=== PATIENT | male | born 1940 | race Hispanic/Latino ===

== ENCOUNTER 2017-04-20 06:19 | Day surgery (SDC) | payer OTHER, MEDICARE ==
[2017-04-19 09:46] VITALS: BP 159/67
[2017-04-19 09:55] LABS: BASOPHILS % (AUTO) 0.6 % (0.0-5.0); EOSINOPHILS % (AUTO) 2.4 % (0.0-8.0); LYMPHOCYTES % (AUTO) 20.4 % (21.0-51.0); MEAN CORPUSCULAR HGB CONC 34.2 g/dL (32.0-36.0); MEAN CORPUSCULAR VOLUME 93.6 fL (79-99); MONOCYTES % (AUTO) 6.9 % (3.0-13.0); NEUTROPHILS % (AUTO) 69.7 % (40.0-77.0); PLATELET COUNT (AUTO) 170 K/uL (130-400); RED BLOOD CELL COUNT(AUTO) 4.39 MIL/uL (4.50-6.20); RED CELL DISTRIBUTION WIDTH 13.5 % (11.0-15.5); WHITE BLOOD COUNT (AUTO) 6.1 K/uL (4.8-10.8)
[2017-04-19 09:56] LABS: APPEARANCE,URINE Clear (CLEAR); BILIRUBIN,URINE Negative (NEGATIVE); COLOR,URINE Yellow (YELLOW); GLUCOSE, URINE (UA) Negative (NEGATIVE); KETONES,URINE Negative (NEGATIVE); LEUKOCYTE ESTERASE ,URINE Negative (NEGATIVE); NITRATE,URINE Negative (NEGATIVE); OCCULT BLOOD,URINE Negative (NEGATIVE); PH,URINE 6.5 (5.0-8.0); PROTEIN,URINE Negative (NEGATIVE)
[2017-04-19 10:02] LABS: POTASSIUM 4.1 mmol/L (3.5-5.1)
[2017-04-19 10:06] LABS: PARTIAL THROMBOPLASTIN TIME 25.6 SEC (26.3-35.5); PROTHROMBIN TIME 10.5 SEC (9.6-11.6)
[2017-04-20] VITALS (10 sets, daily range): BP systolic 101–171; BP diastolic 53–70
[~2017-04-20] VITALS: Ht 152.4 cm; Wt 73.2 kg
[~2017-04-20 06:19] MED LIST: CLOP75TA32 PO; FINA5TAB41 PO; LISI10TA7 PO; SIMV20TA6 PO; SODIUM CHLORIDE 0.9% 500ML 500 ML IV SCH; TAMS0.4C32 PO
[2017-04-20] MEDS ORDERED: IOPAMIDOL-370 75 ML VIAL IV ONE (08:56)
[2017-04-20] MEDS ORDERED: ISOVUE-370 50ML VIAL IV ONE (08:56)
[2017-04-20] MEDS ORDERED: LIDOCAINE HCL 2% 20ML ONE (08:56)
[2017-04-20] MEDS ORDERED: BIVALIRUDIN 250 MG/VIAL IV ONE (08:56)
[2017-04-20] MEDS ORDERED: IOPAMIDOL-370 100 ML VIAL IV ONE (08:56)
[2017-04-20] MEDS ORDERED: SODIUM CHLORIDE 0.9% 1000ML 1,000 ML IV SCH (11:49)
[2017-04-20] MEDS ORDERED: METO-391 PO (11:56)
[2017-04-20] MEDS ORDERED: ASPI81TA40 PO (11:56)
== END 2017-04-20 16:20 | disposition home or self-care (01) ==
LOC: DAH 06:19
PROVIDERS: ATTEND Internal Medicine Cardiovascular Disease
DX: I35.0 Nonrheumatic aortic (valve) stenosis (principal); I25.118 Atherosclerotic heart disease of native coronary artery with other forms of angina pectoris; I10 Essential (primary) hypertension; E78.5 Hyperlipidemia, unspecified; Z86.73 Personal history of transient ischemic attack (TIA), and cerebral infarction without residual deficits; I65.23 Occlusion and stenosis of bilateral carotid arteries
CPT/HCPCS: 36415; 71045; 80048; 81003; 85025; 85610; 85730; 93005; 93460; A4606; C1760; C1769; C1893; C1894; J1644 ×2; J3490; J7040; Q9967 ×3; J0583

== ENCOUNTER 2017-05-04 12:15 | Inpatient (IN) | payer OTHER, MEDICARE ==
[~2017-05-04] VITALS: Ht 157.5 cm; Wt 70.5 kg
[2017-05-04 11:27] VITALS: BP 132/55
[2017-05-04 11:33] LABS: BASOPHILS % (AUTO) 0.6 % (0.0-5.0); EOSINOPHILS % (AUTO) 3.9 % (0.0-8.0); HEMATOCRIT 40.1 % (42-54); LYMPHOCYTES % (AUTO) 19.9 % (21.0-51.0); MEAN CORPUSCULAR HEMOGLOBIN 32.6 pg (27.0-33.0); MEAN CORPUSCULAR HGB CONC 34.9 g/dL (32.0-36.0); MEAN CORPUSCULAR VOLUME 93.5 fL (79-99); MONOCYTES % (AUTO) 6.6 % (3.0-13.0); NUCLEATED RED BLOOD CELLS 0.1 % (0.0-0.19); PLATELET COUNT (AUTO) 131 K/uL (130-400); RED BLOOD CELL COUNT(AUTO) 4.29 MIL/uL (4.50-6.20); RED CELL DISTRIBUTION WIDTH 13.4 % (11.0-15.5); WHITE BLOOD COUNT (AUTO) 6.2 K/uL (4.8-10.8)
[2017-05-04 11:41] LABS: HEMOGLOBIN A1C 6.3 % (4.0-6.0)
[2017-05-04 11:46] LABS: ALBUMIN 3.6 g/dL (3.5-5.0); BILIRUBIN,TOTAL 0.3 mg/dL (0.2-1.0); POTASSIUM 4.3 mmol/L (3.5-5.1); TOTAL PROTEIN, SERUM 6.6 g/dL (6.0-8.3)
[2017-05-04 11:52] LABS: INR 0.98 (0.85-1.15); PARTIAL THROMBOPLASTIN TIME 26.5 SEC (26.3-35.5); PROTHROMBIN TIME 10.3 SEC (9.6-11.6)
[~2017-05-04 12:15] MED LIST changes: +ASPI81TA40 PO; -CLOP75TA32 PO; +METO-391 PO; -SODIUM CHLORIDE 0.9% 500ML 500 ML IV SCH
[2017-05-04] MEDS ORDERED: CEFUROXIME 1.5GM+NS 100ML 100 ML IV SCH (13:00)
[2017-05-04] MEDS ORDERED: CEFUROXIME SODIUM 1.5 GM VIAL IVP SCH (13:15)
[2017-05-04] MEDS ORDERED: WATER FOR INJECTION,STERILE 20 ML VIAL IJ SCH (13:15)
[2017-05-08 09:11] VITALS: BP 134/57
[2017-05-08] MEDS ORDERED: THROMBIN-JMI 5000 UNIT/VIAL TP ONE (09:36)
[2017-05-08] MEDS ORDERED: DELNIDO FORMULA 2 BAG IV ONE (09:37)
[2017-05-08] MEDS ORDERED: NOREPINEPHRINE BITARTRATE 1 MG/1 ML ML IV ONE ×2 (09:51→09:53)
[2017-05-09 11:35] VITALS: BP 145/59
[2017-05-09] MEDS ORDERED: SODIUM CHLORIDE 0.9% 1000ML 1,000 ML IV ONE (11:41)
[2017-05-09] MEDS: CEFUROXIME SODIUM 1.5 GM VIAL ONE (11:56)
[2017-05-09] MEDS ORDERED: CALCIUM CHLORIDE 100 MG/ML 10 ML SYG IVP ONE ×2 (12:00)
[2017-05-09] MEDS ORDERED: SODIUM BICARB 8.4% 50ML SYRINGE IVP ONE ×2 (12:00)
[2017-05-09] MEDS ORDERED: AMINOCAPROIC ACID 250 MG/ML 20 ML VIAL IV ONE ×2 (12:00)
[2017-05-09] MEDS ORDERED: MANNITOL 25% 50ML VIAL IV ONE ×2 (12:00)
[2017-05-09] MEDS ORDERED: HEPARIN SODIUM 1000UNIT/ML 10ML VIAL IV ONE ×2 (12:00)
[2017-05-09] MEDS ORDERED: ALBUMIN (HUMAN) 25% 50 ML IV ONE ×2 (12:00)
[2017-05-09 17:30] VITALS: BP 120/55
[2017-05-09 19:43] VITALS: BP 109/48
[2017-05-09] MEDS ORDERED: POTASSIUM CHLORIDE 20MEQ/100ML 100 ML IV PRN (21:30)
[2017-05-09] MEDS ORDERED: LIDOCAINE HCL-MPF 1% 2ML VIAL IVP PRN (21:30)
[2017-05-09] MEDS ORDERED: POTASSIUM CHLORIDE 20 MEQ ERTAB PO PRN (21:30)
[2017-05-09] MEDS ORDERED: POTASSIUM CHLORIDE 10% ELIXIR 20 MEQ/15 ML UDCUP PO PRN (21:30)
[2017-05-09 22:13] LABS: HEMATOCRIT 38.2 % (42-54); MEAN CORPUSCULAR HEMOGLOBIN 32.5 pg (27.0-33.0); MEAN CORPUSCULAR HGB CONC 34.7 g/dL (32.0-36.0); MEAN CORPUSCULAR VOLUME 93.5 fL (79-99); PLATELET COUNT (AUTO) 133 K/uL (130-400); RED BLOOD CELL COUNT(AUTO) 4.09 MIL/uL (4.50-6.20); RED CELL DISTRIBUTION WIDTH 13.8 % (11.0-15.5); WHITE BLOOD COUNT (AUTO) 5.1 K/uL (4.8-10.8)
[2017-05-09 22:24] LABS: INR 0.99 (0.85-1.15); PARTIAL THROMBOPLASTIN TIME 25.9 SEC (26.3-35.5); PROTHROMBIN TIME 10.4 SEC (9.6-11.6)
[2017-05-09 22:27] LABS: ALBUMIN 3.5 g/dL (3.5-5.0); BILIRUBIN,TOTAL 0.3 mg/dL (0.2-1.0); CREATININE 1.1 mg/dL (0.5-1.5); POTASSIUM 4.2 mmol/L (3.5-5.1); TOTAL PROTEIN, SERUM 6.7 g/dL (6.0-8.3)
[2017-05-09 23:26] VITALS: BP 103/54
[2017-05-10] VITALS (18 sets, daily range): BP systolic 57–142; BP diastolic 30–72
[2017-05-10 04:57] LABS: HEMATOCRIT 36.5 % (42-54); MEAN CORPUSCULAR HEMOGLOBIN 33.1 pg (27.0-33.0); MEAN CORPUSCULAR HGB CONC 35.5 g/dL (32.0-36.0); MEAN CORPUSCULAR VOLUME 93.2 fL (79-99); NUCLEATED RED BLOOD CELLS 0.1 % (0.0-0.19); PLATELET COUNT (AUTO) 108 K/uL (130-400); RED BLOOD CELL COUNT(AUTO) 3.92 MIL/uL (4.50-6.20); RED CELL DISTRIBUTION WIDTH 13.7 % (11.0-15.5); WHITE BLOOD COUNT (AUTO) 5.4 K/uL (4.8-10.8)
[2017-05-10 05:07] LABS: POTASSIUM 4.3 mmol/L (3.5-5.1)
[2017-05-10] MEDS ORDERED: HEPARIN SODIUM 1000UNIT/ML 10ML VIAL ONE ×2 (06:29→07:53)
[2017-05-10] MEDS ORDERED: PAPAVERINE HCL 30 MG/ML 2ML VIAL ONE (06:29)
[2017-05-10] MEDS ORDERED: BACITRACIN 50,000 UNIT VIAL ONE (06:29)
[2017-05-10] MEDS ORDERED: OCTYL 2-CYANOACRYLATE 1 EACH TP ONE (06:29)
[2017-05-10] MEDS ORDERED: NITROGLYCERIN 50 MG/D5% WATER 1 BOT ONE (06:44)
[2017-05-10] MEDS ORDERED: MILRINONE-D5W 20 MG/100 ML 0 ML IV ONE (07:53)
[2017-05-10] MEDS ORDERED: GLYCOPYRROLATE 0.2 MG/ML 5 ML VIAL ONE (07:53)
[2017-05-10] MEDS ORDERED: AMIODARONE HCL 900MG/18ML IV ONE (07:53)
[2017-05-10] MEDS ORDERED: ESMOLOL HCL 10 MG/ML 10 ML VIAL ONE (07:53)
[2017-05-10] MEDS ORDERED: EPINEPHRINE 1 MG/ML AMPULE ONE (07:53)
[2017-05-10] MEDS ORDERED: ROCURONIUM BROMIDE 10MG/1ML 5ML VL ONE ×3 (07:53→12:53)
[2017-05-10] MEDS ORDERED: LIDOCAINE PF 2% 5ML ABBOJECT ONE (07:53)
[2017-05-10] MEDS ORDERED: AMINOCAPROIC ACID 250 MG/ML 20 ML VIAL IV ONE (07:53)
[2017-05-10] MEDS ORDERED: NOREPINEPHRINE BITARTRATE 1 MG/1 ML ML IV ONE ×4 (07:53→12:59)
[2017-05-10] MEDS ORDERED: PROPOFOL 10 MG/ML 20ML VIAL IV ONE (07:53)
[2017-05-10] MEDS ORDERED: PROTAMINE SULFATE 10 MG/ML 25ML VIAL IV ONE ×2 (07:53→12:53)
[2017-05-10] MEDS ORDERED: FENTANYL CITRATE PF 50 MCG/1 ML 20ML VIAL IJ ONE (07:53)
[2017-05-10] MEDS ORDERED: MIDAZOLAM HCL 1 MG/ML 5ML VIAL ONE (07:54)
[2017-05-10] MEDS: CEFUROXIME SODIUM 1.5 GM VIAL ONE (08:00)
[2017-05-10] MEDS ORDERED: THROMBIN-JMI 5000 UNIT/VIAL TP ONE (08:16)
[2017-05-10] MEDS ORDERED: DELNIDO FORMULA 2 BAG IV ONE (08:16)
[2017-05-10 08:37] LABS: ABG BASE EXCESS -2.5 mmol/L (-2.0-3.0); ABG HCO3 22.1 mmol/L (21.0-28.0); ABG OXYGEN SATURATION 99.2 % (95.0-99.0); ABG PCO2 37 mmHg (35-48)
[2017-05-10] MEDS ORDERED: FAMOTIDINE/PF 20 MG/2 ML VIAL IV SCH (09:00)
[2017-05-10] MEDS ORDERED: CEFUROXIME SODIUM 1.5 GM VIAL ONE (09:51)
[2017-05-10] MEDS ORDERED: METHYLPREDNISOLONE SOD SUCC 1,000 MG/8 ML ML IV ONE (10:10)
[2017-05-10 10:37] LABS: ABG BASE EXCESS -3.6 mmol/L (-2.0-3.0); ABG HCO3 23.2 mmol/L (21.0-28.0); ABG OXYGEN SATURATION 99.2 % (95.0-99.0); ABG PCO2 49 mmHg (35-48)
[2017-05-10] MEDS ORDERED: SODIUM BICARB 50MEQ 50ML VIAL ONE ×7 (10:38→21:15)
[2017-05-10 11:27] LABS: ABG BASE EXCESS -7.5 mmol/L (-2.0-3.0); ABG HCO3 19.3 mmol/L (21.0-28.0); ABG OXYGEN SATURATION 96.5 % (95.0-99.0); ABG PCO2 44 mmHg (35-48)
[2017-05-10] MEDS ORDERED: ALBUMIN (HUMAN) 5% 250 ML IV ONE ×2 (11:44→13:49)
[2017-05-10] MEDS ORDERED: SODIUM CHLORIDE 0.9% 1000ML 1,000 ML IV ONE (11:44)
[2017-05-10 11:53] LABS: ABG BASE EXCESS -6.5 mmol/L (-2.0-3.0); ABG HCO3 20.2 mmol/L (21.0-28.0); ABG OXYGEN SATURATION 98.9 % (95.0-99.0); ABG PCO2 46 mmHg (35-48)
[2017-05-10 12:18] LABS: ABG BASE EXCESS -5.1 mmol/L (-2.0-3.0); ABG HCO3 20.9 mmol/L (21.0-28.0); ABG OXYGEN SATURATION 98.8 % (95.0-99.0); ABG PCO2 42 mmHg (35-48)
[2017-05-10] MEDS ORDERED: SODIUM CHLORIDE 0.9% 500ML 500 ML IV SCH (12:49)
[2017-05-10 12:59] LABS: ABG HCO3 23.2 mmol/L (21.0-28.0); ABG OXYGEN SATURATION 98.4 % (95.0-99.0); ABG PCO2 41 mmHg (35-48)
[2017-05-10] MEDS ORDERED: NOREPINEPHRINE 4MG/NS 250ML 250 ML IV PRN (13:00)
[2017-05-10] MEDS ORDERED: ONDANSETRON HCL 4 MG/2 ML VIAL IV PRN (13:00)
[2017-05-10] MEDS ORDERED: MORPHINE SULFATE 4 MG/1ML SYG IV PRN (13:00)
[2017-05-10] MEDS ORDERED: MAGNESIUM 2GM PREMIX 50ML 50 ML IV PRN (13:00)
[2017-05-10] MEDS ORDERED: POTASSIUM PHOS 15 mMOL+NS250ML 250 ML IV PRN (13:00)
[2017-05-10] MEDS ORDERED: GLUCAGON 1MG KIT 1 MG ML IM PRN (13:00)
[2017-05-10] MEDS ORDERED: EPINEPHRINE 2 MG in SODIUM CHLORIDE 0.9% 250 ML IV PRN (13:00)
[2017-05-10] MEDS ORDERED: NITROGLYCERIN 50 MG/D5% WATER 250 BOT IV SCH (13:00)
[2017-05-10] MEDS ORDERED: AMINOCAPROIC ACID 15,000 MG in SODIUM CHLORIDE 0.9% 250 ML IV SCH (13:00)
[2017-05-10] MEDS ORDERED: SODIUM CHLORIDE 0.9% 10 ML VIAL IVP PRN (13:00)
[2017-05-10] MEDS ORDERED: NICARDIPINE HCL 100 MG in SODIUM CHLORIDE 0.9% 60 ML IV PRN (13:00)
[2017-05-10] MEDS ORDERED: CALCIUM GLUCONATE 1 GM in SODIUM CHLORIDE 0.9% 50 ML IV PRN (13:00)
[2017-05-10] MEDS ORDERED: SODIUM CHLORIDE 0.9% 250 ML IV PRN (13:00)
[2017-05-10] MEDS ORDERED: ALBUMIN (HUMAN) 5% 250 ML IV PRN (13:00)
[2017-05-10] MEDS ORDERED: SODIUM CHLORIDE 0.9% 1000ML 1,000 ML IV SCH (13:00)
[2017-05-10] MEDS ORDERED: PROPOFOL 1000 MG/100 ML 100 ML IV PRN (13:00)
[2017-05-10] MEDS ORDERED: ACETAMINOPHEN 650 MG SUPPOSITORY RC PRN (13:00)
[2017-05-10] MEDS ORDERED: DEXTROSE 50%-WATER 50 ML DISP.SYRIN IV PRN (13:00)
[2017-05-10 13:50] LABS: ABG BASE EXCESS -4.8 mmol/L (-2.0-3.0); ABG HCO3 21.7 mmol/L (21.0-28.0); ABG PCO2 46 mmHg (35-48)
[2017-05-10] MEDS: SODIUM BICARB 8.4% 50ML SYRINGE IV PRN ×6 (13:50→21:15)
[2017-05-10] MEDS: POTASSIUM CHLORIDE 20MEQ/100ML 100 ML IV PRN ×6 (13:52→21:48)
[2017-05-10 13:56] LABS: HEMATOCRIT 32.6 % (42-54); MEAN CORPUSCULAR HEMOGLOBIN 33.5 pg (27.0-33.0); MEAN CORPUSCULAR HGB CONC 35.2 g/dL (32.0-36.0); RED BLOOD CELL COUNT(AUTO) 3.43 MIL/uL (4.50-6.20); RED CELL DISTRIBUTION WIDTH 13.7 % (11.0-15.5); WHITE BLOOD COUNT (AUTO) 16.1 K/uL (4.8-10.8)
[2017-05-10 14:03] LABS: PLATELET COUNT (AUTO) 32 K/uL (130-400)
[2017-05-10 14:08] LABS: CREATININE 1.4 mg/dL (0.5-1.5); MAGNESIUM 2.3 mg/dL (1.80-2.40); PHOSPHORUS 4.3 mg/dL (2.5-4.9); POTASSIUM 3.4 mmol/L (3.5-5.1)
[2017-05-10] MEDS: INSULIN REGULAR, HUMAN 3ML 100 UNIT in SODIUM CHLORIDE 0.9% 99 ML IV SCH ×2 (14:32)
[2017-05-10] MEDS ORDERED: ALBUMIN (HUMAN) 5% 250 ML IV SCH (14:45)
[2017-05-10 15:01] LABS: ABG BASE EXCESS -3.2 mmol/L (-2.0-3.0); ABG HCO3 22.4 mmol/L (21.0-28.0); ABG PCO2 42 mmHg (35-48)
[2017-05-10 15:10] LABS: BASOPHILS % (AUTO) 0.1 % (0.0-5.0); EOSINOPHILS % (AUTO) 0.1 % (0.0-8.0); LYMPHOCYTES % (AUTO) 7.8 % (21.0-51.0); MEAN CORPUSCULAR HEMOGLOBIN 33.6 pg (27.0-33.0); MEAN CORPUSCULAR HGB CONC 35.7 g/dL (32.0-36.0); MEAN CORPUSCULAR VOLUME 94.1 fL (79-99); MONOCYTES % (AUTO) 4.2 % (3.0-13.0); NEUTROPHILS % (AUTO) 87.8 % (40.0-77.0); PLATELET COUNT (AUTO) 29 K/uL (130-400); RED CELL DISTRIBUTION WIDTH 13.5 % (11.0-15.5); WHITE BLOOD COUNT (AUTO) 15.3 K/uL (4.8-10.8)
[2017-05-10] MEDS ORDERED: EPINEPHRINE 8 MG in SODIUM CHLORIDE 0.9% 250 ML IV PRN (16:45)
[2017-05-10] MEDS: MORPHINE SULFATE 2 MG/ML 1ML SYG IV PRN ×2 (16:55→22:38)
[2017-05-10 18:16] LABS: BASOPHILS % (AUTO) 0.1 % (0.0-5.0); EOSINOPHILS % (AUTO) 0.1 % (0.0-8.0); HEMATOCRIT 29.1 % (42-54); MEAN CORPUSCULAR HEMOGLOBIN 33.5 pg (27.0-33.0); MEAN CORPUSCULAR HGB CONC 35.4 g/dL (32.0-36.0); MEAN CORPUSCULAR VOLUME 94.7 fL (79-99); MONOCYTES % (AUTO) 3.7 % (3.0-13.0); NEUTROPHILS % (AUTO) 94.1 % (40.0-77.0); PLATELET COUNT (AUTO) 166 K/uL (130-400); RED BLOOD CELL COUNT(AUTO) 3.08 MIL/uL (4.50-6.20); RED CELL DISTRIBUTION WIDTH 13.8 % (11.0-15.5)
[2017-05-10 18:23] LABS: CREATININE 1.8 mg/dL (0.5-1.5); POTASSIUM 3.3 mmol/L (3.5-5.1)
[2017-05-10 18:25] LABS: ABG BASE EXCESS -5.3 mmol/L (-2.0-3.0); ABG HCO3 20.4 mmol/L (21.0-28.0); ABG PCO2 41 mmHg (35-48)
[2017-05-10 20:21] LABS: ABG BASE EXCESS -0.1 mmol/L (-2.0-3.0); ABG HCO3 25.6 mmol/L (21.0-28.0); ABG OXYGEN SATURATION 98.2 % (95.0-99.0); ABG PCO2 46 mmHg (35-48)
[2017-05-10] MEDS: WATER FOR INJECTION,STERILE 20 ML VIAL IJ SCH (20:55)
[2017-05-10] MEDS: CEFUROXIME SODIUM 1.5 GM VIAL IVP SCH (20:55)
[2017-05-10] MEDS ORDERED: CEFUROXIME 1.5GM+NS 100ML 100 ML IV SCH (21:00)
[2017-05-10 21:14] LABS: ABG BASE EXCESS -1.8 mmol/L (-2.0-3.0); ABG HCO3 23.6 mmol/L (21.0-28.0); ABG PCO2 43 mmHg (35-48)
[2017-05-10 22:38] LABS: ABG BASE EXCESS 0.6 mmol/L (-2.0-3.0); ABG HCO3 26.3 mmol/L (21.0-28.0); ABG PCO2 46 mmHg (35-48)
[2017-05-11] VITALS (24 sets, daily range): BP systolic 106–154; BP diastolic 43–71
[2017-05-11] MEDS: HYDROCODONE/ACETAMINOPHEN 5/325 MG TAB PO PRN ×4 (00:22→21:01)
[2017-05-11] MEDS: INSULIN REGULAR, HUMAN 3ML 100 UNIT in SODIUM CHLORIDE 0.9% 99 ML IV SCH ×2 (01:15)
[2017-05-11] MEDS: MORPHINE SULFATE 2 MG/ML 1ML SYG IV PRN (02:39)
[2017-05-11 04:50] LABS: HEMATOCRIT 28.1 % (42-54); MEAN CORPUSCULAR HEMOGLOBIN 32.3 pg (27.0-33.0); MEAN CORPUSCULAR HGB CONC 34.6 g/dL (32.0-36.0); MEAN CORPUSCULAR VOLUME 93.3 fL (79-99); PLATELET COUNT (AUTO) 109 K/uL (130-400); RED BLOOD CELL COUNT(AUTO) 3.01 MIL/uL (4.50-6.20); RED CELL DISTRIBUTION WIDTH 13.9 % (11.0-15.5); WHITE BLOOD COUNT (AUTO) 14.3 K/uL (4.8-10.8)
[2017-05-11 05:21] LABS: CREATININE 1.5 mg/dL (0.5-1.5); MAGNESIUM 1.9 mg/dL (1.80-2.40); PHOSPHORUS 1.5 mg/dL (2.5-4.9); POTASSIUM 4.5 mmol/L (3.5-5.1)
[2017-05-11] MEDS ORDERED: POTASSIUM PHOSPHATE IV PRN (06:45)
[2017-05-11] MEDS ORDERED: PHARMACY COMMUNICATION MISC SCH (06:45)
[2017-05-11] MEDS ORDERED: POTASSIUM PHOSPHATE IV SCH (06:45)
[2017-05-11] MEDS ORDERED: WATER IV PRN (06:45)
[2017-05-11] MEDS ORDERED: DEXTROSE 5% IV PRN (06:45)
[2017-05-11] MEDS ORDERED: WATER IV SCH (06:45)
[2017-05-11] MEDS ORDERED: DEXTROSE 5% IV SCH (06:45)
[2017-05-11] MEDS: CEFUROXIME SODIUM 1.5 GM VIAL IVP SCH ×2 (08:51→20:11)
[2017-05-11] MEDS: WATER FOR INJECTION,STERILE 20 ML VIAL IJ SCH ×2 (08:51→20:10)
[2017-05-11] MEDS: PANTOPRAZOLE SODIUM 40 MG TABLET.DR PO SCH (08:57)
[2017-05-11] MEDS: ASPIRIN 81MG TAB.CHEW PO SCH (08:57)
[2017-05-11] MEDS: ACETAMINOPHEN 325 MG TAB PO PRN (17:47)
[2017-05-11] MEDS: [UNRECOGNIZED DRUG - OTHER] PO SCH (18:00)
[2017-05-11] MEDS ORDERED: BISACODYL 10 MG SUPP.RECT RC PRN (18:00)
[2017-05-11] MEDS ORDERED: [UNRECOGNIZED DRUG - OTHER] NASAL PRN (18:15)
[2017-05-11] MEDS: TAMSULOSIN HCL 0.4 MG CAP.ER.24H PO SCH (20:13)
[2017-05-11] MEDS: FINASTERIDE 5 MG TABLET PO SCH (20:13)
[2017-05-11] MEDS: ATORVASTATIN CALCIUM 20 MG TABLET PO SCH (20:13)
[2017-05-12] VITALS (18 sets, daily range): BP systolic 107–155; BP diastolic 43–75
[2017-05-12] MEDS: [UNRECOGNIZED DRUG - OTHER] PO SCH ×5 (00:40→18:00)
[2017-05-12] MEDS: ACETAMINOPHEN 325 MG TAB PO PRN (01:33)
[2017-05-12 04:11] LABS: HEMATOCRIT 24.3 % (42-54); MEAN CORPUSCULAR HEMOGLOBIN 33.6 pg (27.0-33.0); MEAN CORPUSCULAR HGB CONC 35.5 g/dL (32.0-36.0); MEAN CORPUSCULAR VOLUME 94.7 fL (79-99); PLATELET COUNT (AUTO) 36 K/uL (130-400); RED BLOOD CELL COUNT(AUTO) 2.57 MIL/uL (4.50-6.20)
[2017-05-12 04:43] LABS: ALBUMIN 2.9 g/dL (3.5-5.0); BILIRUBIN,TOTAL 0.6 mg/dL (0.2-1.0); CREATININE 1.4 mg/dL (0.5-1.5); MAGNESIUM 2.2 mg/dL (1.80-2.40); POTASSIUM 4.8 mmol/L (3.5-5.1); TOTAL PROTEIN, SERUM 5.4 g/dL (6.0-8.3)
[2017-05-12] MEDS: HYDROCODONE/ACETAMINOPHEN 5/325 MG TAB PO PRN ×3 (04:50→23:13)
[2017-05-12 05:10] LABS: BAND NEUTROPHILS % (MANUAL) 16 % (0-2); LYMPHOCYTES % (MANUAL) 3 % (22-44); SEGMENTED NEUTROPHILS % 81 % (40-70)
[2017-05-12 05:11] LABS: MAN.DIFF COMMENT-IMPRESSION MANUAL DIFFERENTIAL
[2017-05-12] MEDS: PANTOPRAZOLE SODIUM 40 MG TABLET.DR PO SCH (08:13)
[2017-05-12] MEDS: ASPIRIN 81MG TAB.CHEW PO SCH (08:14)
[2017-05-12] MEDS: WATER FOR INJECTION,STERILE 20 ML VIAL IJ SCH ×2 (09:00→20:24)
[2017-05-12] MEDS: POLYETHYLENE GLYCOL 3350 17 GM POWD.PACK PO SCH (13:26)
[2017-05-12] MEDS ORDERED: FUROSEMIDE 10 MG/ML 2ML VIAL IV SCH (15:15)
[2017-05-12] MEDS ORDERED: FUROSEMIDE 20 MG TABLET PO SCH ×2 (15:15→21:00)
[2017-05-12] MEDS: METOPROLOL TARTRATE 25 MG TAB PO SCH (20:44)
[2017-05-12] MEDS: FUROSEMIDE 20 MG TABLET PO SCH (20:44)
[2017-05-12] MEDS: TAMSULOSIN HCL 0.4 MG CAP.ER.24H PO SCH (20:44)
[2017-05-12] MEDS: FINASTERIDE 5 MG TABLET PO SCH (20:44)
[2017-05-12] MEDS: ATORVASTATIN CALCIUM 20 MG TABLET PO SCH (20:44)
[2017-05-13] MEDS: HYDROCODONE/ACETAMINOPHEN 5/325 MG TAB PO PRN ×3 (03:33→16:21)
[2017-05-13 03:36] VITALS: BP 127/62
[2017-05-13 04:03] LABS: CREATININE 1.3 mg/dL (0.5-1.5); POTASSIUM 4.3 mmol/L (3.5-5.1)
[2017-05-13] MEDS: [UNRECOGNIZED DRUG - OTHER] PO SCH ×4 (04:57→16:22)
[2017-05-13 06:18] LABS: HEMATOCRIT 24.7 % (42-54); MEAN CORPUSCULAR HEMOGLOBIN 32.3 pg (27.0-33.0); MEAN CORPUSCULAR HGB CONC 34.1 g/dL (32.0-36.0); MEAN CORPUSCULAR VOLUME 94.7 fL (79-99); PLATELET COUNT (AUTO) 16 K/uL (130-400); RED BLOOD CELL COUNT(AUTO) 2.61 MIL/uL (4.50-6.20); RED CELL DISTRIBUTION WIDTH 13.5 % (11.0-15.5)
[2017-05-13 07:13] VITALS: BP 112/55
[2017-05-13 07:50] LABS: BAND NEUTROPHILS % (MANUAL) 1 % (0-2); LYMPHOCYTES % (MANUAL) 4 % (22-44); MAN.DIFF COMMENT-IMPRESSION MANUAL DIFFERENTIAL; MONOCYTES % (MANUAL) 2 % (2-9); SEGMENTED NEUTROPHILS % 93 % (40-70)
[2017-05-13 07:51] LABS: PLATELET MORPHOLOGY COMMENT MARKED DECREASED
[2017-05-13] MEDS: PANTOPRAZOLE SODIUM 40 MG TABLET.DR PO SCH (08:14)
[2017-05-13] MEDS: METOPROLOL TARTRATE 25 MG TAB PO SCH ×2 (08:14→20:21)
[2017-05-13] MEDS: WATER FOR INJECTION,STERILE 20 ML VIAL IJ SCH ×2 (08:14→21:00)
[2017-05-13] MEDS: POLYETHYLENE GLYCOL 3350 17 GM POWD.PACK PO SCH (08:14)
[2017-05-13] MEDS: FUROSEMIDE 20 MG TABLET PO SCH ×2 (08:14→20:19)
[2017-05-13 11:03] VITALS: BP 130/51
[2017-05-13 16:10] VITALS: BP 114/49
[2017-05-13 19:47] VITALS: BP 112/50
[2017-05-13] MEDS: TAMSULOSIN HCL 0.4 MG CAP.ER.24H PO SCH (20:19)
[2017-05-13] MEDS: ATORVASTATIN CALCIUM 20 MG TABLET PO SCH (20:19)
[2017-05-13] MEDS: FINASTERIDE 5 MG TABLET PO SCH (20:19)
[2017-05-13 23:50] VITALS: BP 103/48
[2017-05-14 03:55] VITALS: BP 116/55
[2017-05-14 04:26] LABS: HEMATOCRIT 23.4 % (42-54); MEAN CORPUSCULAR HEMOGLOBIN 33.2 pg (27.0-33.0); MEAN CORPUSCULAR HGB CONC 35.1 g/dL (32.0-36.0); MEAN CORPUSCULAR VOLUME 94.4 fL (79-99); NUCLEATED RED BLOOD CELLS 0.2 % (0.0-0.19); PLATELET COUNT (AUTO) 11 K/uL (130-400); RED BLOOD CELL COUNT(AUTO) 2.48 MIL/uL (4.50-6.20); RED CELL DISTRIBUTION WIDTH 13.4 % (11.0-15.5); WHITE BLOOD COUNT (AUTO) 10.6 K/uL (4.8-10.8)
[2017-05-14] MEDS: [UNRECOGNIZED DRUG - OTHER] PO SCH ×5 (06:00→20:34)
[2017-05-14 07:33] VITALS: BP 129/62
[2017-05-14] MEDS ORDERED: LACTULOSE 20 GM/30 ML UDCUP PO PRN (08:45)
[2017-05-14] MEDS ORDERED: GUAIFENESIN 600 MG TABLET.ER PO PRN (08:45)
[2017-05-14] MEDS: POLYETHYLENE GLYCOL 3350 17 GM POWD.PACK PO SCH (09:30)
[2017-05-14] MEDS: FUROSEMIDE 20 MG TABLET PO SCH (09:30)
[2017-05-14] MEDS: WATER FOR INJECTION,STERILE 20 ML VIAL IJ SCH ×2 (09:30→20:27)
[2017-05-14] MEDS: PANTOPRAZOLE SODIUM 40 MG TABLET.DR PO SCH (09:30)
[2017-05-14] MEDS: METOPROLOL TARTRATE 25 MG TAB PO SCH ×2 (09:30→21:36)
[2017-05-14] MEDS: IPRATROPIUM 0.5 MG/2.5 ML INH IH PRN ×2 (10:21→21:28)
[2017-05-14 10:47] VITALS: BP 121/61
[2017-05-14] MEDS ORDERED: MORPHINE SULFATE 4 MG/1ML SYG IV PRN (15:15)
[2017-05-14 16:04] VITALS: BP 127/57
[2017-05-14] MEDS: HYDROCODONE/ACETAMINOPHEN 5/325 MG TAB PO PRN (18:25)
[2017-05-14 19:10] VITALS: BP 132/61
[2017-05-14] MEDS: ACETYLCYSTEINE 10% 100MG/ML 4ML VIAL IH SCH (21:28)
[2017-05-14] MEDS: TAMSULOSIN HCL 0.4 MG CAP.ER.24H PO SCH (21:36)
[2017-05-14] MEDS: FINASTERIDE 5 MG TABLET PO SCH (21:36)
[2017-05-14] MEDS: ATORVASTATIN CALCIUM 20 MG TABLET PO SCH (21:36)
[2017-05-14 23:24] VITALS: BP 102/53
[2017-05-15 03:13] VITALS: BP 110/59
[2017-05-15 04:30] LABS: HEMATOCRIT 21.9 % (42-54); MEAN CORPUSCULAR HEMOGLOBIN 34.2 pg (27.0-33.0); MEAN CORPUSCULAR HGB CONC 36.8 g/dL (32.0-36.0); MEAN CORPUSCULAR VOLUME 92.9 fL (79-99); NUCLEATED RED BLOOD CELLS 0.4 % (0.0-0.19); PLATELET COUNT (AUTO) 48 K/uL (130-400); RED BLOOD CELL COUNT(AUTO) 2.36 MIL/uL (4.50-6.20); RED CELL DISTRIBUTION WIDTH 13.2 % (11.0-15.5); WHITE BLOOD COUNT (AUTO) 8.1 K/uL (4.8-10.8)
[2017-05-15 04:46] LABS: BAND NEUTROPHILS % (MANUAL) 18 % (0-2); EOSINOPHILS % (MANUAL) 2 % (1-6); LYMPHOCYTES % (MANUAL) 14 % (22-44); MAN.DIFF COMMENT-IMPRESSION MANUAL DIFFERENTIAL; MONOCYTES % (MANUAL) 1 % (2-9); PLATELET MORPHOLOGY COMMENT DECREASED; SEGMENTED NEUTROPHILS % 65 % (40-70)
[2017-05-15] MEDS: IPRATROPIUM 0.5 MG/2.5 ML INH IH PRN ×2 (06:28→20:14)
[2017-05-15] MEDS: ACETYLCYSTEINE 10% 100MG/ML 4ML VIAL IH SCH ×2 (06:28→20:14)
[2017-05-15] MEDS: METOPROLOL TARTRATE 25 MG TAB PO SCH ×2 (08:26→21:00)
[2017-05-15] MEDS: POLYETHYLENE GLYCOL 3350 17 GM POWD.PACK PO SCH (08:26)
[2017-05-15] MEDS: PANTOPRAZOLE SODIUM 40 MG TABLET.DR PO SCH (08:26)
[2017-05-15] MEDS: WATER FOR INJECTION,STERILE 20 ML VIAL IJ SCH ×2 (08:27→21:00)
[2017-05-15] MEDS ORDERED: ALBU2.5V2 IH (09:33)
[2017-05-15] MEDS ORDERED: LISI2.5T2 PO (09:33)
[2017-05-15 11:13] VITALS: BP 116/57
[2017-05-15] MEDS: [UNRECOGNIZED DRUG - OTHER] PO SCH ×2 (11:54→16:11)
[2017-05-15 16:29] LABS: HEMATOCRIT 24.8 % (42-54); MEAN CORPUSCULAR HEMOGLOBIN 34.9 pg (27.0-33.0); MEAN CORPUSCULAR HGB CONC 37.3 g/dL (32.0-36.0); MEAN CORPUSCULAR VOLUME 93.6 fL (79-99); NUCLEATED RED BLOOD CELLS 0.3 % (0.0-0.19); PLATELET COUNT (AUTO) 39 K/uL (130-400); RED BLOOD CELL COUNT(AUTO) 2.65 MIL/uL (4.50-6.20); RED CELL DISTRIBUTION WIDTH 13.6 % (11.0-15.5); WHITE BLOOD COUNT (AUTO) 8.3 K/uL (4.8-10.8)
[2017-05-15 16:32] VITALS: BP 115/57
[2017-05-15 19:18] VITALS: BP 123/56
[2017-05-15] MEDS: TAMSULOSIN HCL 0.4 MG CAP.ER.24H PO SCH (21:00)
[2017-05-15] MEDS: FINASTERIDE 5 MG TABLET PO SCH (21:00)
[2017-05-15] MEDS: ATORVASTATIN CALCIUM 20 MG TABLET PO SCH (21:00)
[2017-05-15 23:05] VITALS: BP 109/57
[2017-05-16] MEDS: [UNRECOGNIZED DRUG - OTHER] PO SCH ×4 (00:42→16:02)
[2017-05-16 03:25] VITALS: BP 110/57
[2017-05-16] MEDS: ACETYLCYSTEINE 10% 100MG/ML 4ML VIAL IH SCH ×2 (06:06→18:34)
[2017-05-16] MEDS: IPRATROPIUM 0.5 MG/2.5 ML INH IH PRN ×2 (06:06→18:34)
[2017-05-16 08:00] VITALS: BP 117/59
[2017-05-16] MEDS: METOPROLOL TARTRATE 25 MG TAB PO SCH ×2 (08:29→20:18)
[2017-05-16] MEDS: WATER FOR INJECTION,STERILE 20 ML VIAL IJ SCH ×2 (08:29→20:09)
[2017-05-16] MEDS: PANTOPRAZOLE SODIUM 40 MG TABLET.DR PO SCH (08:29)
[2017-05-16] MEDS: POLYETHYLENE GLYCOL 3350 17 GM POWD.PACK PO SCH (08:29)
[2017-05-16 12:00] VITALS: BP 114/59
[2017-05-16 16:00] VITALS: BP 138/60
[2017-05-16 20:00] VITALS: BP 127/60
[2017-05-16] MEDS: ATORVASTATIN CALCIUM 20 MG TABLET PO SCH (20:18)
[2017-05-16] MEDS: TAMSULOSIN HCL 0.4 MG CAP.ER.24H PO SCH (20:18)
[2017-05-16] MEDS: FINASTERIDE 5 MG TABLET PO SCH (20:18)
[2017-05-16] MEDS: HYDROCODONE/ACETAMINOPHEN 5/325 MG TAB PO PRN (21:10)
[2017-05-17] VITALS (7 sets, daily range): BP systolic 101–128; BP diastolic 51–63
[2017-05-17] MEDS: [UNRECOGNIZED DRUG - OTHER] PO SCH ×4 (05:42→18:00)
[2017-05-17] MEDS: POLYETHYLENE GLYCOL 3350 17 GM POWD.PACK PO SCH (09:00)
[2017-05-17] MEDS: WATER FOR INJECTION,STERILE 20 ML VIAL IJ SCH ×2 (09:00→21:00)
[2017-05-17] MEDS: METOPROLOL TARTRATE 25 MG TAB PO SCH ×2 (09:43→21:38)
[2017-05-17] MEDS: PANTOPRAZOLE SODIUM 40 MG TABLET.DR PO SCH (09:43)
[2017-05-17 10:30] LABS: HEMATOCRIT 25.2 % (42-54); MEAN CORPUSCULAR HEMOGLOBIN 32.7 pg (27.0-33.0); MEAN CORPUSCULAR HGB CONC 34.5 g/dL (32.0-36.0); MEAN CORPUSCULAR VOLUME 94.9 fL (79-99); NUCLEATED RED BLOOD CELLS 0.4 % (0.0-0.19); PLATELET COUNT (AUTO) 25 K/uL (130-400); RED BLOOD CELL COUNT(AUTO) 2.66 MIL/uL (4.50-6.20); RED CELL DISTRIBUTION WIDTH 13.9 % (11.0-15.5); WHITE BLOOD COUNT (AUTO) 9.1 K/uL (4.8-10.8)
[2017-05-17 11:02] LABS: EOSINOPHILS % (MANUAL) 1 % (1-6); LYMPHOCYTES % (MANUAL) 8 % (22-44); MAN.DIFF COMMENT-IMPRESSION MANUAL DIFFERENTIAL; MONOCYTES % (MANUAL) 8 % (2-9); SEGMENTED NEUTROPHILS % 83 % (40-70)
[2017-05-17] MEDS: HYDROCODONE/ACETAMINOPHEN 5/325 MG TAB PO PRN (15:35)
[2017-05-17] MEDS: FINASTERIDE 5 MG TABLET PO SCH (21:38)
[2017-05-17] MEDS: TAMSULOSIN HCL 0.4 MG CAP.ER.24H PO SCH (21:38)
[2017-05-17] MEDS: ATORVASTATIN CALCIUM 20 MG TABLET PO SCH (21:38)
[2017-05-18 04:00] VITALS: BP 120/57
[2017-05-18] MEDS: [UNRECOGNIZED DRUG - OTHER] PO SCH ×4 (06:00→17:12)
[2017-05-18 07:40] VITALS: BP 110/54
[2017-05-18] MEDS: METOPROLOL TARTRATE 25 MG TAB PO SCH (08:21)
[2017-05-18] MEDS: PANTOPRAZOLE SODIUM 40 MG TABLET.DR PO SCH (08:21)
[2017-05-18] MEDS: POLYETHYLENE GLYCOL 3350 17 GM POWD.PACK PO SCH (08:22)
[2017-05-18 11:07] VITALS: BP 112/58
[2017-05-18] MEDS: HYDROCODONE/ACETAMINOPHEN 5/325 MG TAB PO PRN ×2 (12:03→14:38)
[2017-05-18 15:57] VITALS: BP 116/51
== END 2017-05-18 17:45 | DRG 219 ==
LOC: EDSTATUS 12:15 → UNDOADMIN 05-08 08:26 → DAHIP 05-08 08:26 → 2CV 05-09 12:11 → 2AH 05-09 17:02 → 2CV 05-10 07:17 → 2CH 05-11 06:22 → 2DH 05-13 17:52
PROVIDERS: ADMIT Internal Medicine; ATTEND Internal Medicine
PROC: 30233R1 Transfusion of Nonautologous Platelets into Peripheral Vein, Percutaneous Approach (ICD-10-PCS; 2017-05-10)
PROC: X2RF032 Replacement of Aortic Valve using Zooplastic Tissue, Rapid Deployment Technique, Open Approach, New Technology Group 2 (ICD-10-PCS; principal; 2017-05-11)
PROC: 02100Z9 Bypass Coronary Artery, One Artery from Left Internal Mammary, Open Approach (ICD-10-PCS; 2017-05-11)
PROC: 0211093 Bypass Coronary Artery, Two Arteries from Coronary Artery with Autologous Venous Tissue, Open Approach (ICD-10-PCS; 2017-05-11)
PROC: 06BQ4ZZ Excision of Left Saphenous Vein, Percutaneous Endoscopic Approach (ICD-10-PCS; 2017-05-11)
PROC: X2RF032 Replacement of Aortic Valve using Zooplastic Tissue, Rapid Deployment Technique, Open Approach, New Technology Group 2 (ICD-10-PCS; 2017-05-11)
PROC: 02UX08Z Supplement Thoracic Aorta, Ascending/Arch with Zooplastic Tissue, Open Approach (ICD-10-PCS; 2017-05-11)
PROC: 5A1221Z Performance of Cardiac Output, Continuous (ICD-10-PCS; 2017-05-11)
DX: I25.10 Atherosclerotic heart disease of native coronary artery without angina pectoris (principal); I50.33 Acute on chronic diastolic (congestive) heart failure; D61.818 Other pancytopenia; D69.59 Other secondary thrombocytopenia; I35.0 Nonrheumatic aortic (valve) stenosis; I73.9 Peripheral vascular disease, unspecified; E78.5 Hyperlipidemia, unspecified; N40.0 Benign prostatic hyperplasia without lower urinary tract symptoms; I11.0 Hypertensive heart disease with heart failure; R69 Illness, unspecified; K59.00 Constipation, unspecified; Z79.899 Other long term (current) drug therapy; Z86.73 Personal history of transient ischemic attack (TIA), and cerebral infarction without residual deficits; Z95.3 Presence of xenogenic heart valve; Z79.82 Long term (current) use of aspirin
CPT/HCPCS: 36415; 36430; 36600; 71045; 71046; 76998; 80048; 80053; 82330; 82435; 82803; 82947; 82948; 83036; 83605; 83735; 83880; 84100; 84132; 84295; 85018; 85025; 85027; 85347; 85610; 85730; 86850; 86900; 86901; 86922; 88305; 88311; 88313; 93005; 93318; 94002; 94010; 94150; 94640; 94664; 97039; A4218; A4344; A7048; C1729; J0171; J0282; J0697; J1644; J1815; J1940; J2001; J2150; J2250; J2260; J2440; J2704; J2720; J2930; J3010; J3475; J3480; J3490; J7030; J7040; J7060; J7120; J7608; P9034; P9045; P9047

== ENCOUNTER 2022-04-27 17:25 | Emergency (ER) | payer MEDICARE ==
[~2022-04-27] VITALS: Ht 157.5 cm; Wt 68.9 kg
[~2022-04-27 17:25] MED LIST changes: +ALBU2.5V2 IH; -LISI10TA7 PO; +LISI2.5T13 PO; +SIMV-43 PO; -SIMV20TA6 PO
[2022-04-27] MEDS ORDERED: ASPIRIN 81MG CHEW TAB PO ONE (17:30)
[2022-04-27 17:31] VITALS: BP 102/54
[2022-04-27 17:41] LABS: BASOPHILS % (AUTO) 0.2 % (0.0-5.0); EOSINOPHILS % (AUTO) 0.6 % (0.0-8.0); HEMATOCRIT 23.3 % (42-54); MEAN CORPUSCULAR HEMOGLOBIN 31.3 pg (27.0-33.0); MEAN CORPUSCULAR HGB CONC 32.2 g/dL (32.0-36.0); MEAN CORPUSCULAR VOLUME 97.1 fL (79-99); MONOCYTES % (AUTO) 13.3 % (3.0-13.0); NEUTROPHILS % (AUTO) 72.8 % (40.0-77.0); NUCLEATED RED BLOOD CELLS 2.1 % (0.0-0.19); PLATELET COUNT (AUTO) 50 K/uL (130-400); RED CELL DISTRIBUTION WIDTH 23.4 % (11.0-15.5); WHITE BLOOD COUNT (AUTO) 5.4 K/uL (4.8-10.8)
[2022-04-27 17:52] LABS: CREATININE 1.3 mg/dL (0.5-1.5); POTASSIUM 4.9 mmol/L (3.5-5.1)
[2022-04-27 17:56] LABS: ALBUMIN 2.8 g/dL (3.5-5.0); TOTAL PROTEIN, SERUM 6.6 g/dL (6.0-8.3)
[2022-04-27] MEDS ORDERED: ACETAMINOPHEN 500 MG TABLET PO ONE (19:00)
== END 2022-04-27 19:05 | disposition home or self-care (01) ==
LOC: EDH 17:25
DX: D50.0 Iron deficiency anemia secondary to blood loss (chronic) (principal); R07.89 Other chest pain; M54.9 Dorsalgia, unspecified; I51.9 Heart disease, unspecified; Z79.82 Long term (current) use of aspirin; Z79.899 Other long term (current) drug therapy; Z88.8 Allergy status to other drugs, medicaments and biological substances; Z95.1 Presence of aortocoronary bypass graft; Z95.2 Presence of prosthetic heart valve
CPT/HCPCS: 36415; 71045; 80053; 84484; 85025; 93005